=== PATIENT | male | born 1985 | race Caucasian/White ===

== ENCOUNTER 2021-12-06 10:33 | Emergency (ER) | payer SELFPAY ==
--- NOTE | 2021-12-06 11:13 | ER ---
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 ll1 Coronavirus screen: Client denies travel out of the [place] in the last 14 days. At this time, the client does not indicate any symptoms associated with coronavirus-19. Ebola Screen: Patient denies travel to an Ebola-affected area in the 21 days before illness onset. Initial Sepsis Screen: Does the patient meet any 2 criteria? No. Patient's initial sepsis screen is negative. Does the patient have a suspected source of infection? Yes: Skin breakdown/wound. Risk Assessment: Do you want to hurt yourself or someone else? Patient reports no desire to harm self or others. Onset of symptoms was December 06, 2021. 10:37 Method Of Arrival: Ambulatory [facility] 10:37 Acuity: EMERITA 4 ll1 Triage Assessment: 10:41 Bite description: bite sustained to left leg by a dog, animal information: ll1 vaccination(s) is unknown. General: Appears in no apparent distress. Behavior is calm, cooperative, appropriate for age. Pain: Complains of pain in left leg Quality of pain is described as aching. Derm: Reports dog bite L calf. Musculoskeletal: Circulation, motion, and sensation intact. Capillary refill < 3 seconds, Reports pain in left leg. Historical: - Allergies: 10:40 No Known Allergies; ll1 - PMHx: 10:40 None; ll1 - PSHx: 10:40 None; ll1 - Immunization history:: Client reports having NOT received the Covid vaccine. Last tetanus immunization: up to date. - Social history:: Smoking status: Patient denies any tobacco usage or history of. Screenin:23 Abuse screen: Denies threats or abuse. Denies injuries from another. Nutritional ss screening: No deficits noted. Tuberculosis screening: Never had TB. Fall Risk None identified. Assessment: 11:23 General: Appears in no apparent distress. comfortable, Behavior is calm, cooperative. ss Neuro: Green Agitation-Sedation Scale (RASS): 0 - Alert and Calm Level of Consciousness is awake, alert, obeys commands, Oriented to person, place, time, situation. Cardiovascular: Capillary refill < 3 seconds is brisk in bilateral fingers. Respiratory: Airway is patent Respiratory effort is even, unlabored, Respiratory pattern is regular, symmetrical. GI: No signs and/or symptoms were reported involving the gastrointestinal system. EENT: Derm: Skin is intact, is healthy with good turgor, Skin is dry, Skin is pink, warm \T\ dry. normal. Musculoskeletal: Swelling present in left calf. Injury Description: abrasion noted to L calf that occurred by dog bite. Vital Signs: 10:37 Resp 17; ll1 10:39 BP 153 / 89; Pulse 100; Resp 17; Temp 97.9; Pulse Ox 99% ; Weight 113.4 kg; Height 6 ll1 ft. 2 in. (187.96 cm); Pain 4/10; 10:39 Body Mass Index 32.10 (113.40 kg, 187.96 cm) ll1 ED Course: 10:35 Patient arrived in ED. mr 10:35 Luis Currie MD is Attending Physician. jr11 10:38 Triage completed. ll1 10:38 Arm band placed on. ll1 11:21 Jackie Joy, TAYLA is Primary Nurse. ss 11:23 Patient has correct armband on for positive identification. Bed in low position. Call ss light in reach. 11:23 No provider procedures requiring assistance completed. Patient did not have IV access ss during this emergency room visit. Wound care: to dog bite/ abrasion located on left calf was cleaned with Hibiclens. Administered Medications: 11:15 Drug: Bacitracin Ointment (500 unit/g) 1 application Route: Topical; Site: affected ss area; Medication: 11:23 VIS not applicable for this client. ss Outcome: 11:13 Discharge ordered by . jr11 11:25 Discharged to home ambulatory. ss 11:25 Condition: good 11:25 Discharge instructions given to patient, family, Instructed on discharge instructions, follow up and referral plans. medication usage, Demonstrated understanding of instructions, follow-up care, medications, Prescriptions given X 1. 11:25 Patient left the ED. ss Signatures: Carolee Monique mr Jackie Joy, TAYLA RN Sudarshan Michele RN RN ll1 Luis Currie MD MD jr11 Corrections: (The following items were deleted from the chart) 10:42 10:39 Temp 97.9F; 113.4 kg; Height 6 ft. 2 in.; BMI: 32.1; Pain 10/07; ll1 ll1
--- NOTE | 2021-12-06 11:13 | EDPHYS ---
Physician Documentation [facility] Name: Mian Gan Age: 36 yrs Sex: Male : 1985 Arrival Date: 12/06/2021 Time: 10:35 Bed 10 Private MD: ED Physician Luis Currie HPI: 12/06 11:10 This 36 yrs old Male presents to ER via Ambulatory with complaints of Dog Bite. jr11 11:10 The patient was bitten on the left leg, by a dog, while approaching the animal, jr11 outdoors, dog captured and they are performing test for rabies . Onset: The symptoms/episode began/occurred just prior to arrival. Animal information: Patient/Caregiver unable to provide information related to the animal. Secondary to the bite the patient reports a puncture wound. Associated signs and symptoms: The patient has no apparent associated signs or symptoms. Severity of symptoms: At their worst the symptoms were mild, in the emergency department the symptoms are unchanged. denies any other injuries. Historical: - Allergies: 10:40 No Known Allergies; ll1 - PMHx: 10:40 None; ll1 - PSHx: 10:40 None; ll1 - Immunization history:: Client reports having NOT received the Covid vaccine. Last tetanus immunization: up to date. - Social history:: Smoking status: Patient denies any tobacco usage or history of. ROS: 11:10 All other systems are negative. jr11 Exam: 11:10 Constitutional: This is a well developed, well nourished patient who is awake, alert, jr11 and in no acute distress. Head/Face: Normocephalic, atraumatic. Eyes: Extra-ocular motions intact. Lids and lashes normal. Conjunctiva and sclera are non-icteric and not injected. Cornea within normal limits. Periorbital areas with no swelling, redness, or edema. ENT: Nares patent. No nasal discharge, no septal abnormalities noted. Oropharynx with no redness, swelling, or masses, exudates, or evidence of obstruction, uvula midline. Mucous membranes moist. Neck: Trachea midline, no thyromegaly or masses palpated, and no cervical lymphadenopathy. Supple, full range of motion without nuchal rigidity, or vertebral point tenderness. No Meningismus. Chest/axilla: Normal chest wall appearance and motion. Nontender with no deformity. No lesions are appreciated. Cardiovascular: Regular rate and rhythm with a normal S1 and S2. No gallops, murmurs, or rubs. Normal PMI, no JVD. No pulse deficits. Respiratory: Lungs have equal breath sounds bilaterally, clear to auscultation and percussion. No rales, rhonchi or wheezes noted. No increased work of breathing, no retractions or nasal flaring. Abdomen/GI: Soft, non-tender, with normal bowel sounds. No distension or tympany. No guarding or rebound. No evidence of tenderness throughout. Back: No spinal tenderness. No costovertebral tenderness. Full range of motion. 11:10 Skin: puncture wound to L calf, superficial no active bleeding . Vital Signs: 10:37 Resp 17; ll1 10:39 BP 153 / 89; Pulse 100; Resp 17; Temp 97.9; Pulse Ox 99% ; Weight 113.4 kg; Height 6 ll1 ft. 2 in. (187.96 cm); Pain 4/10; 10:39 Body Mass Index 32.10 (113.40 kg, 187.96 cm) ll1 MDM: 10:35 Patient medically screened. jr11 11:10 Differential diagnosis: superfical dog bite. Rabies Status: Rabies immunization is not jr11 indicated. Data reviewed: vital signs, nurses notes. ED course: Officer will f/u on results of rabies test on shot animal by animal control. 12/06 10:41 Order name: Wound Care; Complete Time: 11:22 jr11 Administered Medications: 11:15 Drug: Bacitracin Ointment (500 unit/g) 1 application Route: Topical; Site: affected ss area; Disposition Summary: 12/06/21 11:13 Discharge Ordered Location: Home jr11 Condition: Stable jr11 Diagnosis - Bitten by dog jr11 Discharge Instructions: - Discharge Summary Sheet jr11 - Animal Bite, Adult jr11 Forms: - Medication Reconciliation Form jr11 - Thank You Letter jr11 - Work release form eb - Antibiotic Education jr11 - Prescription Opioid Use jr11 Prescriptions: - Augmentin 875-125 mg Oral Tablet - take 1 tablet by ORAL route every 12 hours for 10 days; 20 tablet; Refills: 0, jr11 Product Selection Permitted Signatures: Jackie Joy RN RN Sudarshan Michele RN RN ll1 Luis Currie MD jr11
[2021-12-06] MEDS ORDERED: MUPIROCIN 2% OINT 22GM TUBE TOP ONE (11:16)
[2021-12-06 11:37] VITALS: BP 153/89; TEMP 97.9; O2SAT 99
== END 2021-12-06 11:25 | disposition home or self-care (01) ==
LOC: ER 10:33
DX: S81.832A Puncture wound without foreign body, left lower leg, initial encounter (principal); W54.0XXA Bitten by dog, initial encounter
CPT/HCPCS: 99283